=== PATIENT | female | born 1935 | race Caucasian/White ===

== ENCOUNTER 2017-10-01 09:42 | Emergency (ER) | payer MEDICARE, BC ==
--- NOTE | 2017-10-01 10:10 | ERPHSYRPT ---
- History of Present Illness Time Seen by Provider: 10/01/17 10:04 Source: patient, EMS Exam Limitations: no limitations Physician History: The patient is an 82-year-old female brought in by ambulance from home where she lives with her son and now complains of multiple areas of pain and nausea since last night. She complains of pain in her upper abdomen, lower chest, upper back, and underneath both arms. She now does not have pain in her chest nor in her arms. She states her back pain is "sore". She still has pain in her upper abdomen and has felt like she wants to vomit but is unable to. She took 3 Tums earlier in the morning without relief. She also complains of a cough last night. She denies fever or chills. She denies shortness of breath. Her past medical history is significant for diabetes, diabetic neuropathy, CHF, hypertension, and gout. She has had a hysterectomy and appendectomy. Timing/Duration: today Severity: moderate Modifying Factors: Improves With: nothing Associated Symptoms: nausea, abdominal pain, cough, chest pain, No vomiting Allergies/Adverse Reactions: Sulfa (Sulfonamide Antibiotics) Allergy (Severe, Verified 10/01/17 10:07) Hives AND SWELLING Home Medications: Gabapentin [Neurontin] 300 mg PO TID 02/18/14 [History] Allopurinol 300 mg [Zyloprim 300 mg] 300 mg PO DAILY 03/16/14 [History] Glimepiride 4 mg [Amaryl 4 mg] 4 mg PO DAILY 11/04/14 [History] Guaifenesin [Mucinex] 600 mg PO BID 02/09/16 [History] Insulin NPH Human Isophane [Humulin N] 4 unit SQ UD 02/09/16 [History] Insulin Regular, Human [Humulin R] 3 unit IJ UD 02/09/16 [History] Metolazone [Zaroxolyn] 5 mg PO DAILY 02/09/16 [History] Ergocalciferol (Vitamin D2) [Vitamin D2] 1.25 unit DAILY 10/01/17 [History] Potassium Chloride 10 Meq Tab* [Klor Con 10 MEQ] 40 meq PO BID 10/01/17 [ History] Spironolact/Hydrochlorothiazid [Spironolactone-Hctz 25-25 Tab] 1 ea BID [History] Hx Tetanus, Diphtheria Vaccination/Date Given: (unknown) Hx Influenza Vaccination/Date Given: No Hx Pneumococcal Vaccination/Date Given: No - Review of Systems Constitutional: No Fever, No Chills Eyes: No Symptoms Ears, Nose, & Throat: No Symptoms Respiratory: Cough Cardiac: Chest Pain Abdominal/Gastrointestinal: Abdominal Pain, Nausea Genitourinary Symptoms: No Dysuria Musculoskeletal: Back Pain Skin: No Rash Neurological: No Dizziness, No Focal Weakness, No Sensory Changes Psychological: No Symptoms Endocrine: No Symptoms Hematologic/Lymphatic: No Symptoms Immunological/Allergic: No Symptoms All Other Systems: Reviewed and Negative - Past Medical History Pertinent Past Medical History: Yes Neurological History: No Pertinent History ENT History: Cataracts Cardiac History: High Cholesterol, Hypertension Respiratory History: No Pertinent History Endocrine Medical History: Diabetes Type II Musculoskeletal History: Arthritis GI Medical History: No Pertinent History History: No Pertinent History Psycho-Social History: No Pertinent History Female Reproductive Disorders: No Pertinent History, Uterine Cancer Other Medical History: umbilical hernia, shingles, lt hip pain, bilateral cellulitis of lower legs. Gout - Past Surgical History Past Surgical History: Yes Neuro Surgical History: No Pertinent History Cardiac: No Pertinent History Respiratory: No Pertinent History Gastrointestinal: Appendectomy, Hemorrhoidectomy Genitourinary: Other Musculoskeletal: No Pertinent History Female Surgical History: Hysterectomy Other Surgical History: kidney function, has seen kidney doctor in past - Social History Smoking Status: Never smoker Exposure to second hand smoke: No Drug Use: none Patient Lives Alone: No - Nursing Vital Signs Nursing Vital Signs: Initial Vital Signs Temperature 97.0 F 10/01/17 09:43 Pulse Rate 77 10/01/17 09:43 Respiratory Rate 18 10/01/17 09:43 Blood Pressure 149/74 10/01/17 09:43 O2 Sat by Pulse Oximetry 94 L 10/01/17 09:43 Pain Scale Pain Intensity 4 - Physical Exam General Appearance: no apparent distress, alert, obese Eye Exam: PERRL/EOMI, eyes nml inspection Ears, Nose, Throat Exam: normal ENT inspection, TMs normal, pharynx normal, moist mucous membranes Neck Exam: normal inspection, non-tender, supple, full range of motion Respiratory Exam: normal breath sounds, lungs clear, No respiratory distress Cardiovascular Exam: regular rate/rhythm, normal heart sounds, normal peripheral pulses Gastrointestinal/Abdomen Exam: tenderness (epigastric) Pelvic Exam: not done Rectal Exam: not done Back Exam: normal inspection, normal range of motion, No CVA tenderness, No vertebral tenderness Extremity Exam: normal inspection, normal range of motion, pelvis stable Neurologic Exam: alert, oriented x 3, cooperative, normal mood/affect, nml cerebellar function, nml station & gait, sensation nml, No motor deficits Skin Exam: normal color, warm, dry, No rash Lymphatic Exam: No adenopathy SpO2 Interpretation: normal - Course EKG Interpreted by Me: RATE, Sinus Rhythm, Left [place] Deviation, LAFB, NORMAL INTERVALS, NORMAL QRS, NORMAL ST-T, Other (No change compared to EKG 01/08/15) - Radiology Exams Chest X-ray Interpretation: Reviewed by me, Teleradiologist Report, Negative (per Dr Worley.) - CT Exams Abdomen/Pelvis CT Interpretation: Tele-radiologist Report, Other (markedly distended gallbladder without gallstones per Dr Worley) Ordered Tests: Active Orders 24 hr Category Date Time Status Clean Catch Urine Specimen STAT Care 10/01/17 10:11 Active EKG-ER Only STAT Care 10/01/17 10:11 Active IV Insertion STAT Care 10/01/17 10:11 Active ABDOMEN AND PELVIS W/0 CONTRAS [CT] Stat Exams 10/01/17 10:12 Completed CHEST 2 VIEWS (PA AND LAT) Stat Exams 10/01/17 10:12 Completed AMYLASE Stat Lab 10/01/17 11:00 Completed CBC W DIFF Stat Lab 10/01/17 10:27 Completed CMP Stat Lab 10/01/17 10:27 Completed LIPASE Stat Lab 10/01/17 10:27 Completed Lactic Acid Stat Lab 10/01/17 10:11 Completed TROPONIN Q3H Lab 10/01/17 10:27 Completed TROPONIN Q3H Lab 10/01/17 13:15 Completed TROPONIN Q3H Lab 10/01/17 16:15 Ordered TROPONIN Q3H Lab 10/01/17 19:15 Ordered TROPONIN Q3H Lab 10/01/17 22:15 Ordered UA W/RFX UR CULTURE Stat Lab 10/01/17 10:12 Uncollected Medication Summary Discontinued Medications Generic Name Dose Route Start Last Admin Trade Name Freq PRN Reason Stop Dose Admin Famotidine 20 mg 10/01/17 10:11 10/01/17 10:40 Pepcid 20 Mg Vial IV 10/01/17 10:12 20 mg STAT ONE Administration Famotidine Confirm 10/01/17 10:22 Pepcid 20 Mg Vial Administered 10/01/17 10:23 Dose 20 mg IV .STK-MED ONE Ondansetron HCl 4 mg 10/01/17 10:11 10/01/17 10:39 Zofran 4 Mg/2 Ml Vial IV 10/01/17 10:12 4 mg STAT ONE Administration Ondansetron HCl Confirm 10/01/17 10:21 Zofran 4 Mg/2 Ml Vial Administered 10/01/17 10:22 Dose 4 mg .ROUTE .STK-MED ONE Lab/Rad Data: Laboratory Result Diagrams 10/01/17 10:27 10/01/17 10:27 Laboratory Results 10/01/17 10/01/17 10/01/17 Range/Units 13:15 11:00 10:27 WBC (4.0-10.5) K/mm3 RBC (4.1-5.4) M/mm3 Hgb (12.0-16.0) gm/dl Hct (35-47) % MCV (78-100) fl MCH (26-32) pg MCHC (32-36) g/dl RDW (11.5-14.0) % Plt Count (150-450) K/mm3 MPV (6-9.5) fl Gran % (36.0-66.0) % Eos # (Auto) (0-0.5) Absolute Lymphs (auto) (1.0-4.6) Absolute Monos (auto) (0.0-1.3) Lymphocytes % (24.0-44.0) % Monocytes % (0.0-12.0) % Eosinophils % (0.00-5.0) % Basophils % (0.0-0.4) % Absolute Granulocytes (1.4-6.9) Basophils # (0-0.4) Sodium (137-145) mmol/L Potassium (3.5-5.1) mmol/L Chloride (98-107) mmol/L Carbon Dioxide (22-30) mmol/L Anion Gap (5-15) MEQ/L BUN (7-17) mg/dL Creatinine (0.52-1.04) mg/dL Estimated GFR ML/MIN Glucose (74-106) mg/dL Lactic Acid (0.4-2.0) Calcium (8.4-10.2) mg/dL Total Bilirubin (0.2-1.3) mg/dL AST (14-36) U/L ALT (0-35) U/L Alkaline Phosphatase (38-126) U/L Troponin I 0.037 H* 0.028 (0.000-0.034) ng/mL Serum Total Protein (6.3-8.2) g/dL Albumin (3.5-5.0) g/dL Amylase 1157 H (30-110) U/L Lipase (23-300) U/L 10/01/17 10/01/17 10/01/17 Range/Units 10:27 10:27 10:11 WBC 13.5 H (4.0-10.5) K/mm3 RBC 4.33 (4.1-5.4) M/mm3 Hgb 13.8 (12.0-16.0) gm/dl Hct 41.6 (35-47) % MCV 96.1 (78-100) fl MCH 31.9 (26-32) pg MCHC 33.2 (32-36) g/dl RDW 13.6 (11.5-14.0) % Plt Count 230 (150-450) K/mm3 MPV 12.4 H (6-9.5) fl Gran % 89.0 H (36.0-66.0) % Eos # (Auto) 0 (0-0.5) Absolute Lymphs (auto) 0.99 L (1.0-4.6) Absolute Monos (auto) 0.49 (0.0-1.3) Lymphocytes % 7.3 L (24.0-44.0) % Monocytes % 3.6 (0.0-12.0) % Eosinophils % 0.0 (0.00-5.0) % Basophils % 0.1 (0.0-0.4) % Absolute Granulocytes 12.03 H (1.4-6.9) Basophils # 0.01 (0-0.4) Sodium 142 (137-145) mmol/L Potassium 4.5 (3.5-5.1) mmol/L Chloride 93 L (98-107) mmol/L Carbon Dioxide 34 H (22-30) mmol/L Anion Gap 19.4 H (5-15) MEQ/L BUN 71 H (7-17) mg/dL Creatinine 1.95 H (0.52-1.04) mg/dL Estimated GFR 26.0 ML/MIN Glucose 313 H (74-106) mg/dL Lactic Acid 1.2 (0.4-2.0) Calcium 10.3 H (8.4-10.2) mg/dL Total Bilirubin 4.00 H (0.2-1.3) mg/dL AST 339 H (14-36) U/L ALT 184 H (0-35) U/L Alkaline Phosphatase 112 (38-126) U/L Troponin I (0.000-0.034) ng/mL Serum Total Protein 7.7 (6.3-8.2) g/dL Albumin 4.5 (3.5-5.0) g/dL Amylase (30-110) U/L Lipase 11370 H (23-300) U/L - Progress Progress: unchanged Discussed with Dr.: Other (Sadie at [facility].) Counseled pt/family regarding: lab results, diagnosis, need for follow-up, rad results - Departure Time of Disposition: 14:15 Departure Disposition: Transfer (Transfer to [facility] per Dr Noel, GI.) Clinical Impression: Acute pancreatitis due to calculus of common bile duct Condition: Stable Critical Care Time: No Referrals: HUNG ABDULLAHI [Primary Care Provider] -
[2017-10-01] MEDS ORDERED: Zofran 4 MG/2 ML VIAL IV ONE (10:11)
[2017-10-01] MEDS ORDERED: Pepcid 20 MG VIAL IV ONE ×2 (10:11→10:22)
[2017-10-01] MEDS ORDERED: Zofran 4 MG/2 ML VIAL ONE (10:21)
[2017-10-01 10:29] LABS: BASOPHIL % 0.1 % (0.0-0.4); Basophil (Absolute #) 0.01 (0-0.4); Eosinophil (Absolute #) 0 (0-0.5); Granulocyte Absolute (ANC) 12.03 (1.4-6.9); Hematocrit 41.6 % (35-47); Hemoglobin 13.8 gm/dl (12.0-16.0); Lymphocyte (Absolute #) 0.99 (1.0-4.6); Lymphocytes % 7.3 % (24.0-44.0); Mean Cell Volume 96.1 fl (78-100); Mean Corpuscular Hemoglobin 31.9 pg (26-32); Mean Corpuscular Hgb Concent. 33.2 g/dl (32-36); Mean Platelet Volume 12.4 fl (6-9.5); Monocyte (Absolute #) 0.49 (0.0-1.3); Monocytes % 3.6 % (0.0-12.0); Platelet Count 230 K/mm3 (150-450); Red Blood Count 4.33 M/mm3 (4.1-5.4); Red Cell Distribution Width 13.6 % (11.5-14.0); White Blood Count 13.5 K/mm3 (4.0-10.5)
[2017-10-01 10:36] LABS: ALBUMIN 4.5 g/dL (3.5-5.0); ANION GAP 19.4 MEQ/L (5-15); Calcium 10.3 mg/dL (8.4-10.2); Creatinine 1 1.95 mg/dL (0.52-1.04); Potassium 4.5 mmol/L (3.5-5.1); Total Protein 7.7 g/dL (6.3-8.2)
--- NOTE | 2017-10-01 11:20 | XRAY ---
Indication: Chest pain and cough. Comparison: January 08, 2015. PA/lateral chest demonstrates new right midlung subsegmental atelectasis/scarring. Remaining heart and lungs unremarkable. Bony thorax intact again with moderate degenerative changes.
--- NOTE | 2017-10-01 11:30 | XRAY ---
Indication: Abdomen and back pain one day. Multiple contiguous axial images obtained through the abdomen and pelvis without contrast as ordered. Comparison: None Study is slightly limited by respiration artifact and patient body habitus. Lung bases demonstrates mild bilateral atelectasis/scarring. No infiltrate or effusion. Heart is not enlarged. Small hiatal hernia. Noncontrasted stomach and bowel loops appear nonobstructed. Mild diffuse scattered colonic fecal debris throughout. Previous reported appendectomy and hysterectomy. Gallbladder is markedly distended without gallstones or biliary distention. No free fluid/air. 1.7 cm right adrenal adenoma. Remaining liver, pancreas, spleen, left adrenal gland, kidneys, ureters, and bladder appear unremarkable for noncontrast exam. Mild scattered aortoiliac calcifications without AAA. Osseous structures intact with moderate degenerative changes throughout the spine including minimal grade 1 L4 spondylolisthesis. Also mild double curvature scoliosis and advanced degenerative changes of the left hip. Lesser mild degenerative changes of the right hip. Moderate-sized fatty umbilical hernia. Impression: 1. Limited exam due to body habitus and respiration artifact. 2. Markedly distended gallbladder without gallstones. Gallbladder sonogram yield further information. 3. Mild fecal stasis without obstruction. 4. Right adrenal adenoma. 5. Hiatal hernia and fatty umbilical hernia. 6. Multilevel degenerative spondylosis, double curvature scoliosis, and degenerative changes of both hips, left greater than right. CT DI 35.17
[2017-10-01] MEDS ORDERED: Sodium Chloride 0.9% 1000 ML 1,000 ML IV SCH (14:15)
[2017-10-01] MEDS ORDERED: Sodium Chloride 0.9% 1000 ML 1,000 ML ONE (14:19)
[2017-10-01 14:29] VITALS: BP 130/72; PULSE 77; O2SAT 96
== END 2017-10-01 16:37 | disposition short-term general hospital (02) ==
LOC: ED 09:42
DX: K85.90 Acute pancreatitis without necrosis or infection, unspecified (principal); K80.50 Calculus of bile duct without cholangitis or cholecystitis without obstruction; I10 Essential (primary) hypertension; E11.9 Type 2 diabetes mellitus without complications; Z79.4 Long term (current) use of insulin; Z85.42 Personal history of malignant neoplasm of other parts of uterus; Z79.899 Other long term (current) drug therapy; M19.90 Unspecified osteoarthritis, unspecified site
CPT/HCPCS: 36415; 71046; 74176; 80053; 82150; 82962; 83605; 83690; 84484; 85025; 93005; 96360; 96361; 96374; 96375; 99285; J2405